=== PATIENT | female | born 1955 | race Caucasian/White ===

== ENCOUNTER → 2017-02-23 | Outpatient (CLI) | payer OTHER | LOC: CIMAGING 07:13 | PROVIDERS: ATTEND Internal Medicine Hematology & Oncology | DX: Z12.31 Encounter for screening mammogram for malignant neoplasm of breast (principal) | CPT/HCPCS: G0202 ==

== ENCOUNTER → 2017-03-08 | Outpatient (CLI) | payer OTHER | LOC: CIMAGING 11:19 | PROVIDERS: ATTEND Internal Medicine Hematology & Oncology | DX: R05 Cough (principal) | CPT/HCPCS: 71020-PO ==